=== PATIENT | female | born 1960 | race African-American/Black ===

== ENCOUNTER 2025-04-02 22:25 | Emergency (ER) | payer SELFPAY ==
[~2025-04-02] VITALS: Ht 172.7 cm; Wt 76.5 kg
[2025-04-02 22:40] VITALS: O2SAT 100
[2025-04-02 23:14] LABS: CLARITY URINE CLOUDY (CLEAR); COLOR URINE YELLOW (YELLOW); GLUCOSE URINE NEGATIVE (NEGATIVE); KETONES URINE TRACE (NEGATIVE); LEUKOCYTE ESTERASE URINE 3+ (NEGATIVE); NITRITE URINE NEGATIVE (NEGATIVE); OCCULT BLOOD URINE TRACE (NEGATIVE); PH URINE 5.5 (4.5-8.0); PROTEIN URINE NEGATIVE (NEGATIVE); SPECIFIC GRAVITY URINE 1.020 (1.005-1.030); UROBILINOGEN URINE 1.0 E.U./dL (0.2-1.0)
[2025-04-02 23:35] LABS: SQUAMOUS EPITHELIAL CELL URINE 1+ /lpf (RARE/1+); WBC URINE 50-100 /hpf (0-2)
[2025-04-02 23:36] LABS: BACTERIA URINE 1+
[2025-04-03] MEDS ORDERED: DOXY100C5 MT (00:15)
[2025-04-03] MEDS: CEFTRIAXONE SODIUM 500MG VIAL IM ONE (00:21)
[2025-04-03 00:23] VITALS: BP 141/86; PULSE 72; RESP 14; TEMP 36.8; O2SAT 100
[2025-04-03] MEDS ORDERED: CEPH500C2 MT (00:36)
[2025-04-05 04:07] LABS: CHLAMYDIA TRACHOMATIS NAA Negative (Negative); NEISSERIA GONORRHOEAE NAA Negative (Negative)
== END 2025-04-03 00:24 | disposition home or self-care (01) ==
LOC: ER 22:25
DX: Z20.2 Contact with and (suspected) exposure to infections with a predominantly sexual mode of transmission (principal); N39.0 Urinary tract infection, site not specified; Z91.040 Latex allergy status; Z98.890 Other specified postprocedural states
CPT/HCPCS: 99283; 87491; 87591; 81003; 81025; 87086; 96372; J0696